=== PATIENT | male | born 2000 | race Two or more races ===

== ENCOUNTER 2024-09-22 14:29 | Emergency (ER) | payer OTHER ==
[~2024-09-22] VITALS: Ht 175.3 cm; Wt 81.6 kg
[2024-09-22 16:12] LABS: HEMATOCRIT 50.6 % (39.0-48.0); HEMOGLOBIN 17.2 g/dL (13-16.00); MEAN CELL VOLUME 87.4 fL (80.0-100.00); MEAN CORPUSCULAR HEMOGLOBIN 29.7 pg (27.00-32.0); MEAN CORPUSCULAR HGB CONC 33.9 g/dl (32.0-36.0); PLATELET COUNT 209 K/uL (150-450); RED BLOOD COUNT 5.79 M/uL (4.00-6.00); RED CELL DISTRIBUTION WIDTH 13.5 % (11.5-14.5)
[2024-09-22] MEDS ORDERED: OSEL75CA PO (17:38)
== END 2024-09-22 18:47 | disposition home or self-care (01) ==
LOC: ER 14:30
DX: J10.1 Influenza due to other identified influenza virus with other respiratory manifestations (principal); Z20.822 Contact with and (suspected) exposure to COVID-19